=== PATIENT | male | born 1985 | race Caucasian/White ===

== ENCOUNTER 2019-03-11 14:47 | Emergency (ER) | payer OTHER, SELFPAY ==
[2019-03-11 14:52] VITALS: BP 115/71; PULSE 73; RESP 15; TEMP 36.4; O2SAT 98; BMI 22.4
[2019-03-11] MEDS: TET,DIPH,PERTUSS(ACELL),VAC/PF 0.5 ML SYRINGE IM (14:57)
--- NOTE | 2019-03-11 17:12 | ED.SKABFB ---
HPI - Skin/Abscess/Foreign Bdy <DAVON Perez - Last Filed: 03/11/19 18:19> General Chief complaint: Skin/Abscess/Foreign Body Stated complaint: Cut arm Time Seen by Provider: 03/11/19 16:15 Source: patient Mode of arrival: ambulatory Limitations: no limitations History of Present Illness HPI narrative: Patient is a 33-year-old male with unknown last tetanus was a current everyday smoker who presents with the chief complaint of laceration to his right forearm. 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 He denies any decreased sensation, decreased movement to his forearm. Denies any possibility of foreign body. Related Data Allergies Allergy/AdvReac Type Severity Reaction Status Date / Time No Known Drug Allergies Allergy Verified 03/11/19 14:57 Review of Systems <DAVON Perez - Last Filed: 03/11/19 18:19> Review of Systems GENERAL: Denies chills, fatigue, malaise, fever, sweats. HEENT: Denies sinus pain, ear pain, sore throat, difficulty swallowing, dizziness. RESPIRATORY: Denies dyspnea, cough, wheezing, hemoptysis, sputum. CARDIOVASCULAR: Denies chest pain, palpitations, orthopnea, edema, GASTROINTESTINAL: Denies nausea, vomiting, abdominal pain, diarrhea, constipation, melena. : Denies dysuria, frequency, incontinence, hematuria, urinary retention. MUSCULOSKELETAL: See HPI SKIN: See HPI NEUROLOGIC: Denies weakness, headache, numbness, change in speech, confusion, seizures, incoordination. PSYCHIATRIC: No concerning psychosocial issues. 12 point review of systems is negative except for those stated above PFSH <DAVON Perez - Last Filed: 03/11/19 18:19> Social History Smoking Status: Current every day smoker Social History Smoking Status: Current every day smoker Exam <DAVON Perez - Last Filed: 03/11/19 18:19> Narrative Exam Narrative: GENERAL: This is a well-nourished, well-developed patient, appears anxious HEAD: Atraumatic. Normocephalic. No temporal or scalp tenderness. EYES: Pupils equal round and reactive. Extraocular motions intact. No scleral icterus. No injection or drainage. ENT: Nose without bleeding, purulent drainage or septal hematoma. Throat without erythema, tonsillar hypertrophy or exudate. Uvula midline. Airway patent. NECK: Trachea midline. No JVD or lymphadenopathy. Supple, nontender, no meningeal signs. RESPIRATORY: No cough. No increased respiratory effort. EXTREMITIES: Laceration is noted. range of motion is intact right hand and forearm. Strength intact right hand and forearm. Positive radial pulse right forearm. BACK: Nontender without deformity or crepitance. No flank tenderness. NEURO: AOx3. SKIN: 3 cm laceration noted medial aspect of right forearm. Fascia visible. No tendon or muscle involvement. No obvious foreign body. Initial Vital Signs Initial Vital Signs: Vital Signs Temperature 97.5 F L 03/11/19 14:52 Pulse Rate 73 03/11/19 14:52 Respiratory Rate 15 03/11/19 14:52 Blood Pressure 115/71 03/11/19 14:52 Pulse Oximetry 98 03/11/19 14:52 <Corina Elliott DO - Last Filed: 03/15/19 07:15> Initial Vital Signs Initial Vital Signs: Vital Signs Temperature 97.5 F L 03/11/19 14:52 Pulse Rate 73 03/11/19 14:52 Respiratory Rate 15 03/11/19 14:52 Blood Pressure 115/71 03/11/19 14:52 Pulse Oximetry 98 03/11/19 14:52 Procedures <DAVON Perez - Last Filed: 03/11/19 18:19> Laceration Repair Laceration 1: Site: upper extremity Side (If applicable): right Size (cm): 3 Description: linear Depth: simple, single layer Local Anesthetic: lidocaine 1% Amount of anesthesia used (mL): 2.5 Pre-repair: wound explored, irrigated extensively (Cleansed with sterile water as well as Hibiclens.) and deep structures intact Skin layer closed with: nylon Size (cm): 4-0 Number of sutures: 6 Technique: simple, interrupted Course <DAVON Perez - Last Filed: 03/11/19 18:19> Orders Ordered: Discontinued Medications Diphtheria/Tetanus/Acell Pertussis (Adacel) 0.5 ml IM .ONCE ONE Stop: 03/11/19 14:55 Last Admin: 03/11/19 14:57 Dose: 0.5 ml Vital Signs - 8 hr 03/11/19 14:52 03/11/19 17:15 Temperature 97.5 F L Pulse Rate 73 89 Respiratory Rate 15 16 Blood Pressure 115/71 Blood Pressure [Left Arm] 126/78 Pulse Oximetry 98 98 <Corina Elliott DO - Last Filed: 03/15/19 07:15> Orders Ordered: Discontinued Medications Diphtheria/Tetanus/Acell Pertussis (Adacel) 0.5 ml IM .ONCE ONE Stop: 03/11/19 14:55 Last Admin: 03/11/19 14:57 Dose: 0.5 ml Vital Signs - 8 hr 03/11/19 14:52 03/11/19 17:15 Temperature 97.5 F L Pulse Rate 73 89 Respiratory Rate 15 16 Blood Pressure 115/71 Blood Pressure [Left Arm] 126/78 Pulse Oximetry 98 98 MDM - Skin/Abscess/Foreign Bdy <DAVON Perez - Last Filed: 03/11/19 18:19> MDM Narrative Medical decision making narrative: The patient is a 33-year-old male who presents with a chief complaint of laceration. It was closed as a procedural note. Patient declined x-ray to evaluate for foreign body. He tolerated the sutures well. tetanus was updated. I discussed at length monitoring for signs and symptoms of infection such as redness, pus fever. Discussed following up for 7 days for suture removal. Patient had no questions or concerns upon discharge. L & I paperwork filled out. Discharge Plan Departure Patient Disposition: Home Clinical Impression: Laceration Discharge Date/Time: 03/11/19 17:32 Interventions: ED Discharge Assessment Last Done: 03/11/19 17:31 Instructions: DI for Laceration Repair -- Simple Activity Restrictions/Additional Instructions: Today we updated her tetanus. Please monitor your wound for signs and symptoms of infection such as redness pus and fever. This can still developed even though we cleaned it out. Please rest your arm. Please use [id number] medications as needed. Please follow-up if you find any signs of infection. Please do not submerge her arm in dirty water, such as pool water bath water or Ghosh water. Please follow up in about 1 week for suture removal. Please follow up with the primary care provider. Come back to emergency department for any acute concerns such as uncontrolled bleeding, inability keep down fluids or heart attack or stroke <Corina Elliott DO - Last Filed: 03/15/19 07:15> Cosign ED Attending Cosignature Attestation: I was immediately available in the department for consultation. This documentation has been reviewed and I agree with assessment and plan. Supervised by Corina Elliott DO
[2019-03-11 17:15] VITALS: BP 126/78; PULSE 89; RESP 16; O2SAT 98
== END 2019-03-11 17:32 | disposition home or self-care (01) ==
PROVIDERS: Emergency Provider Nurse Practitioner Family
DX: S51.811A Laceration without foreign body of right forearm, initial encounter (principal); Y99.0 Civilian activity done for income or pay
CPT/HCPCS: 12002; 96372; 99283; 90715